=== PATIENT | male | born 1965 | race Caucasian/White ===

== ENCOUNTER 2017-12-15 15:23 | Emergency (ER) | payer SELFPAY ==
[~2017-12-15] VITALS: Ht 167.6 cm; Wt 81.8 kg
[2017-12-15] MEDS ORDERED: BUPIVACAINE HCL/PF 0.25% 10 ML VIAL INJ ONE (17:00)
[2017-12-15] MEDS ORDERED: BACITRACIN 0.9 GM PACKET OINTMENT TP ONE (17:00)
[2017-12-15] MEDS ORDERED: LIDOCAINE HCL 1% 10 ML VIAL INJ ONE (17:00)
[2017-12-15] MEDS ORDERED: PERTUSS(ACELL),DIPH,TET VAC/PF 0.5 ML VIAL IM ONE (17:00)
[2017-12-15 19:14] VITALS: BP 123/86
== END 2017-12-15 19:17 | disposition home or self-care (01) ==
LOC: EMS 15:27
DX: S62.637A Displaced fracture of distal phalanx of left little finger, initial encounter for closed fracture (principal); S61.217A Laceration without foreign body of left little finger without damage to nail, initial encounter; R03.0 Elevated blood-pressure reading, without diagnosis of hypertension; W23.0XXA Caught, crushed, jammed, or pinched between moving objects, initial encounter; Y93.89 Activity, other specified; Y92.89 Other specified places as the place of occurrence of the external cause; Y99.8 Other external cause status
CPT/HCPCS: 12001; 29130; 73140; 90471; 90715; 96372; 99284; J0690; J3490 ×2